=== PATIENT | male | born 1985 | race Caucasian/White ===

== ENCOUNTER 2016-09-13 02:05 | Emergency (ER) | payer OTHER ==
--- NOTE | 2016-09-13 03:08 | ED ORDER SUMMARY ---
..... Patient: DIGNA MEDELLIN OrderSheet [facility] VisitID: [id number] [place] [address] 31y, M Registration Date/Time: 09/13/2016 ORDER SHEET Weight: 22.6 kg (stated) Allergies: No Known Drug Allergy GENERAL ORDERS: Shoulder 2V or more Left Urgent (02:38 09/13/2016 Jarett Talbert) (Ack 2:42 [facility] ER Supervisor Dumping) (2:51 Joyce) MEDICATION ORDERS: NitroGLYCERIN SL 0.4 mg (once now. hold for SB < 110 or MAP < 65) (02:26 09/13/2016 Jarett Talbert) (Cancelled: Other2:27 Jarett Talbert) Toradol IM 60 mg (NOW) (02:38 09/13/2016 Jarett Talbert) (Ack 2:39 JQuminh R.N.) (2:44 JQuivediya R.N.) IV FLUIDS: ORDER SHEET NOTES: [Electronically signed by Lavon Shaw R.N. (03:18 09/13/2016)] [Electronically signed by Darrell Dunham Dr. (21:32 09/19/2016)] [Electronically locked/signed by Lavon Shaw R.N. (03:18 09/13/2016)]
--- NOTE | 2016-09-13 03:08 | ED NURSING NOTES ---
Clinical Report - Nurses [place] [address] [place] [address] 09/13/2016 2:06 Patient: DIGNA MEDELLIN TRIAGE Triage time 02:27. Acuity: LEVEL 4. Chief Complaint: BACK PAIN and (Left upper). 02:31. Alert. SEPSIS SCREEN: Sepsis Screen. Negative (no infection suspected/documented). MALINDA COMA SCORE: Malinda Coma Scale: 15- eyes open spontaneously (4); best verbal response- oriented x 4 (5); best motor response- obeys commands (6). --02:31 Lavon Shaw R.N. 02:26 09/13/16. BP: 163/104. HR: 116. RR: 16. O2 saturation: 98% on room air. Temp: 98.7 F (oral). Pain level now: 03/19. --02:31 Lavon Shaw R.N. Weight: 22.6 kg stated. Height/Length: 73 inches Per Patient. BMI: 6.6. --02:30 Lavon Shaw R.N. Medications Claritin Oral. --02:28 Lavon Shaw R.N. Medication/allergy information source: the patient. --02:31 Lavon Shaw R.N. Allergies No Known Drug Allergy. --02:28 Lavon Shaw R.N. History Arrived by private vehicle. Historian: patient. Unaccompanied. Primary physician (Aurelio). Onset. (1 weeks ago). ( Patient reports left upper back pain below his shoulder blade for about 1 week, denies any injury). No history of recent trauma. 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 PAST MEDICAL HX: Tetanus status: up-to-date. Immunizations: up-to-date. SOCIAL HX: Current every day heavy tobacco smoker- 1 pack per day. Occasional alcohol use. No drug use. No infectious disease exposure. ABUSE ASSESSMENT: No report of abuse. FALL RISK ASSESSMENT: Fall risk assessment completed. No fall risk identified. NUTRITIONAL RISK ASSESSMENT: The nutritional risk assessment revealed no deficiencies. FUNCTIONAL ASSESSMENT: Functional assessment: no impairments noted. LEARNING NEEDS ASSESSMENT: The learning needs assessment revealed no barriers. SKIN INTEGRITY ASSESSMENT: Skin integrity risk assessment completed. No skin integrity risk identified. --02:31 Lavon Sahw R.N. PROBLEMS: Diverticulitis. UTI - Urinary Tract Infection. --02:28 Lavon Shaw R.N. ADDITIONAL SURGERIES: Adenoidectomy. Tonsillectomy. --02:28 Lavon Shaw R.N. Colectomy. --02:29 Lavon Shaw R.N. Interventions ID band on patient. To treatment room. --02:31 Lavon Shaw R.N. PHYSICAL ASSESSMENT 02:31. Ambulatory to room. GENERAL / NEURO / PSYCH: Alert. Oriented X 4. RESPIRATORY: Respirations not labored. EXTREMITIES: Sensation intact in extremities. ROM of extremities within normal limits. --02:32 Lavon Shaw R.N. NURSING PROGRESS NOTES 02:32. Head of bed elevated. Two patient identifiers checked. Call light placed in reach. Bed placed in lowest position. Brakes of bed on. Patient ready for evaluation- chart flagged. --02:32 Lavon Shaw R.N. 02:44 09/13/2016 Toradol (Ketorolac Tromethamine) IM 60 mg given. Given in the left ventral gluteus. Allergies verified and confirmed 5 rights. --02:44 Lavon Shaw R.N. 02:44. Patient walked to radiology with tech. --02:44 Lavon Shaw R.N. 02:53. Patient returned from radiology by stretcher with tech. --03:07 Lavon Shaw R.N. 03:13. The patient is calm and resting quietly. GENERAL / NEURO / PSYCH: Alert. Oriented X 4. No sensory deficit. RESPIRATORY: No respiratory distress. SKIN: Skin is warm and dry. Skin color within normal limits. --03:18 Lavon Shaw R.N. DISPOSITION / DISCHARGE Departure time: 03:16. Condition at departure: stable. No learning barriers present. Discharge instructions provided and reviewed with the patient. Reviewed medication(s) side effects, precautions, dosing and course information. Prescription(s) given to the patient. Patient verbalized understanding. The patient was discharged home and unaccompanied at time of discharge. He left the Emergency Department ambulatory and via private vehicle. Patient driving. FALL RISK ASSESSMENT: Fall risk assessment completed. No fall risk identified. --03:17 Lavon Shaw R.N. 03:13 09/13/16. BP: 141/96. HR: 97. RR: 16. O2 saturation: 97%. Pain level now: 02/16. --03:17 Lavon Shaw R.N. Locked/Released at 09/13/2016 3:18 by Lavon Shaw R.N.
--- NOTE | 2016-09-13 03:08 | ED CLINICAL REPORT ---
Clinical Report - Physicians/Mid Levels [facility] [address] [place] [address] 09/13/2016 2:06 Patient: DIGNA MEDELLIN Arrived- By private vehicle. Historian- patient. HISTORY OF PRESENT ILLNESS Chief Complaint: Injury to left shoulder. The injury happened 1 week ago. Occurred at home. ( reports he does not recall). Patient is experiencing mild pain. Patient denies injury to the head or neck. No other injury. ( reports no chest pain, shortness of breath, weakness, dizziness, vision changes.). REVIEW OF SYSTEMS No swelling, tingling, numbness, weakness or suspected foreign body. No skin laceration. All systems otherwise negative, except as recorded above. PAST HISTORY See nurses notes. Tetanus immunization status is up-to-date. SOCIAL HISTORY Smoker- current status unknown. No alcohol use or drug use. No recent travel. Is a local resident. FAMILY HISTORY no family history of early cardiac disease. ADDITIONAL NOTES The nursing notes have been reviewed. PHYSICAL EXAM Vital Signs: 09/13/2016 02:26 BP: 163/104. HR: 116. RR: 16. O2 saturation: 98%. Temp: 98.7 F. Pain level now: 8/10. Blood pressure normal. Oxygen saturation normal. Appearance: Alert. Oriented X3. No acute distress. Head: Head atraumatic. Eyes: Pupils equal, round and reactive to light. Eyes normal inspection. ENT: Ears normal. Nose normal. Pharynx normal. Neck: Normal inspection. Neck supple. C-spine non-tender. CVS: Normal heart rate and rhythm. Heart sounds normal. Pulses normal. Respiratory: No respiratory distress. Breath sounds normal. Chest nontender. No chest wall injury, rales, rhonchi or wheezes. Abdomen: No visible injury. Soft and nontender. Bowel sounds normal. No organomegaly. No mass. Back: Normal inspection. No tenderness. ROM normal. Skin: Skin intact. Skin warm and dry. Normal skin color. Normal skin turgor. Extremities: Normal external inspection. No shoulder injury. Shoulder otherwise negative. (mild tenderness over the medial border of the left scapula. no overlying skin changes or crepitus.). No extremity tenderness in other areas. Extremities otherwise negative. ( no lower extremity edema or calf tenderness). Neuro, Vascular and Tendons: Sensation intact. Motor intact. Vascular status intact. Tendon function intact. Tendon visualized, uninjured. LABS, X-RAYS, AND EKG Lt Shoulder X-ray: No fracture. Normal alignment. No bony lesion or air in the soft tissue. Soft tissues normal. Joint spaces normal. Views: AP with external rotation, AP with internal rotation and "Y" view. Technique: good. The X-rays were independently viewed by me and interpreted contemporaneously by me. Prior films were not available for comparison. PROGRESS AND PROCEDURES Course of Care: The patient is a 31 yo male presenting for evaluation of shoulder pain. Patient with MSK type of pain. Discomfort is reproducible. Patient in no acute distress. Do not feel this is AAA or atypical OH or PE presentation. Discussed with patient workup. Patient agreeable to plan. Pain medication ordered. No signs of compartment syndrome. Patient is neurovasc intact. Do not feel this is a septic joint. XR does not show any acute abnormalities. Discussed with patient work up and diagnosis. Do not feel patient needs to be admitted or require further ED work up. Patient is to follow up with his primary care doctor for further evaluation. All questions answered. Patient expressed understanding of these instructions and was agreeable to them. Patient evaluated prior to discharge. Continues to be doing well. Exam reassuring. CLINICAL IMPRESSION 09/13/2016 02:26 BP: 163/104. HR: 116. RR: 16. O2 saturation: 98%. Temp: 98.7 F. Pain level now: 8/10. Blood pressure normal. Oxygen saturation normal. Sprain of the right shoulder (acute). INSTRUCTIONS Warnings: GENERAL WARNINGS: Return or contact your physician immediately if your condition worsens or changes unexpectedly, if not improving as expected, or if other problems arise. Specifically return if pain, vomiting, bleeding, breathing difficulty or fever. Your Current Medications: CONTINUE TAKING THE FOLLOWING MEDICATIONS: Claritin Oral. Prescription Medications: [facility] 5 mg / 325 mg tablets: take 1 orally every 6 hours as needed for pain. Dispense ten (10). No refill. Substitution is permissible. Motrin 600 mg tablets: take 1 tablet orally every 6 hours as needed for pain, stiffness or swelling. Dispense thirty (30). No refill. Substitution is permissible. (take with food) Follow-up: Return to the emergency department as needed. Follow up with your doctor in three days. Reason for referral: recheck today's concerns. Summary of care provided to patient via paper. Screening today revealed the patient's blood pressure to be in the normal range. The patient should follow up with a primary care provider for blood pressure management. Understanding of the discharge instructions verbalized by patient. (Electronically signed by Darrell Dunham Dr. 09/19/2016 21:32)
--- NOTE | 2016-09-13 03:08 | ED ORDER SUMMARY ---
..... 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 hold for SB < 110 or MAP < 65) (02:26 09/13/2016 Jarett Talbert) (Cancelled: Other2:27 Jarett Talbert) Toradol IM 60 mg (NOW) (02:38 09/13/2016 Jarett Talbert) (Ack 2:39 JQuminh R.N.) (2:44 JQuivediya R.N.) IV FLUIDS: ORDER SHEET NOTES: [Electronically signed by Lavon Shaw R.N. (03:18 09/13/2016)] [Electronically signed by Darrell Dunham Dr. (21:32 09/19/2016)] [Electronically locked/signed by Lavon Shaw R.N. (03:18 09/13/2016)]
--- NOTE | 2016-09-13 03:08 | ED NURSING NOTES ---
Clinical Report - Nurses [place] [address] [place] [address] 09/13/2016 2:06 Patient: DIGNA MEDELLIN TRIAGE Triage time 02:27. Acuity: LEVEL 4. Chief Complaint: BACK PAIN and (Left upper). 02:31. Alert. SEPSIS SCREEN: Sepsis Screen. Negative (no infection suspected/documented). MALINDA COMA SCORE: Malinda Coma Scale: 15- eyes open spontaneously (4); best verbal response- oriented x 4 (5); best motor response- obeys commands (6). --02:31 Lavon Shaw R.N. 02:26 09/13/16. BP: 163/104. HR: 116. RR: 16. O2 saturation: 98% on room air. Temp: 98.7 F (oral). Pain level now: 03/19. --02:31 Lavon Shaw R.N. Weight: 22.6 kg stated. Height/Length: 73 inches Per Patient. BMI: 6.6. --02:30 Lavon Shaw R.N. Medications Claritin Oral. --02:28 Lavon Shaw R.N. Medication/allergy information source: the patient. --02:31 Lavon Shaw R.N. Allergies No Known Drug Allergy. --02:28 Lavon Shaw R.N. History Arrived by private vehicle. Historian: patient. Unaccompanied. Primary physician (Aurelio). Onset. (1 weeks ago). ( Patient reports left upper back pain below his shoulder blade for about 1 week, denies any injury). No history of recent trauma. 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 PAST MEDICAL HX: Tetanus status: up-to-date. Immunizations: up-to-date. SOCIAL HX: Current every day heavy tobacco smoker- 1 pack per day. Occasional alcohol use. No drug use. No infectious disease exposure. ABUSE ASSESSMENT: No report of abuse. FALL RISK ASSESSMENT: Fall risk assessment completed. No fall risk identified. NUTRITIONAL RISK ASSESSMENT: The nutritional risk assessment revealed no deficiencies. FUNCTIONAL ASSESSMENT: Functional assessment: no impairments noted. LEARNING NEEDS ASSESSMENT: The learning needs assessment revealed no barriers. SKIN INTEGRITY ASSESSMENT: Skin integrity risk assessment completed. No skin integrity risk identified. --02:31 Lavon Shaw R.N. PROBLEMS: Diverticulitis. UTI - Urinary Tract Infection. --02:28 Lavon Shaw R.N. ADDITIONAL SURGERIES: Adenoidectomy. Tonsillectomy. --02:28 Lavon Shaw R.N. Colectomy. --02:29 Lavon Shaw R.N. Interventions ID band on patient. To treatment room. --02:31 Lavon Shaw R.N. PHYSICAL ASSESSMENT 02:31. Ambulatory to room. GENERAL / NEURO / PSYCH: Alert. Oriented X 4. RESPIRATORY: Respirations not labored. EXTREMITIES: Sensation intact in extremities. ROM of extremities within normal limits. --02:32 Lavon Shaw R.N. NURSING PROGRESS NOTES 02:32. Head of bed elevated. Two patient identifiers checked. Call light placed in reach. Bed placed in lowest position. Brakes of bed on. Patient ready for evaluation- chart flagged. --02:32 Lavon Shaw R.N. 02:44 09/13/2016 Toradol (Ketorolac Tromethamine) IM 60 mg given. Given in the left ventral gluteus. Allergies verified and confirmed 5 rights. --02:44 Lavon Shaw R.N. 02:44. Patient walked to radiology with tech. --02:44 Lavon Shaw R.N. 02:53. Patient returned from radiology by stretcher with tech. --03:07 Lavon Shaw R.N. 03:13. The patient is calm and resting quietly. GENERAL / NEURO / PSYCH: Alert. Oriented X 4. No sensory deficit. RESPIRATORY: No respiratory distress. SKIN: Skin is warm and dry. Skin color within normal limits. --03:18 Lavon Shaw R.N. DISPOSITION / DISCHARGE Departure time: 03:16. Condition at departure: stable. No learning barriers present. Discharge instructions provided and reviewed with the patient. Reviewed medication(s) side effects, precautions, dosing and course information. Prescription(s) given to the patient. Patient verbalized understanding. The patient was discharged home and unaccompanied at time of discharge. He left the Emergency Department ambulatory and via private vehicle. Patient driving. FALL RISK ASSESSMENT: Fall risk assessment completed. No fall risk identified. --03:17 Lavon Shaw R.N. 03:13 09/13/16. BP: 141/96. HR: 97. RR: 16. O2 saturation: 97%. Pain level now: 02/16. --03:17 Lavon Shaw R.N. Locked/Released at 09/13/2016 3:18 by Lavon Shaw R.N.
--- NOTE | 2016-09-13 08:01 | DIAGNOSTIC IMAGING REPORT ---
PROCEDURE: XR SHOULDER 2 OR MORE VW-LEFT INDICATION: PAIN, initial encounter TECHNIQUE: Three views. COMPARISON: None. FINDINGS: Osseous structures, joint spaces and soft tissues are normal. IMPRESSION: 1. Normal left shoulder.
--- NOTE | 2016-09-19 21:32 | ED MAR SUMMARY ---
..... Medication Administration Record [facility] [address] [place] [address] Patient: DIGNA MEDELLIN Visit ID: [id number] 31y, M Weight: 22.6 kg Height/Length: 73 in BMI: 6.6 ALLERGIES: No Known Drug Allergy Given 02:44 09/13/2016 Lavon Shaw RJackNJack Medication Administered: TORADOL [IM] (KETOROLAC TROMETHAMINE), Dose: 60 mg IM. Medication Ordered: Toradol IM 60 mg (NOW).
--- NOTE | 2016-09-19 21:32 | ED MAR SUMMARY ---
..... Medication Administration Record [facility] [address] [place] [address] Patient: DIGNA MEDELLIN Visit ID: [id number] 31y, M Weight: 22.6 kg Height/Length: 73 in BMI: 6.6 ALLERGIES: No Known Drug Allergy Given 02:44 09/13/2016 Lavon Shaw RJackNJack Medication Administered: TORADOL [IM] (KETOROLAC TROMETHAMINE), Dose: 60 mg IM. Medication Ordered: Toradol IM 60 mg (NOW).
--- NOTE | 2016-09-19 21:32 | ED DISCHARGE INSTRUCTIONS ---
Patient: DIGNA MEDELLIN General Instructions [facility] VisitID: [id number] [place] [address] 31y, M Registration Date/Time: 09/13/2016 09/13/2016 02:26 BP: 163/104. HR: 116. RR: 16. O2 saturation: 98%. Temp: 98.7 F. Pain level now: 8/10. Blood pressure normal. Oxygen saturation normal. Sprain of the right shoulder (acute). INSTRUCTIONS Warnings: GENERAL WARNINGS: Return or contact your physician immediately if your condition worsens or changes unexpectedly, if not improving as expected, or if other problems arise. Specifically return if pain, vomiting, bleeding, breathing difficulty or fever. Your Current Medications: CONTINUE TAKING THE FOLLOWING MEDICATIONS: Claritin Oral. Prescription Medications: [place] 5 mg / 325 mg tablets: take 1 orally every 6 hours as needed for pain. Dispense ten (10). No refill. Substitution is permissible. Motrin 600 mg tablets: take 1 tablet orally every 6 hours as needed for pain, stiffness or swelling. Dispense thirty (30). No refill. Substitution is permissible. (take with food) Follow-up: Return to the emergency department as needed. Follow up with your doctor in three days. Reason for referral: recheck today's concerns. Summary of care provided to patient via paper. Screening today revealed the patient's blood pressure to be in the normal range. The patient should follow up with a primary care provider for blood pressure management. Understanding of the discharge instructions verbalized by patient. ADDITIONAL INFORMATION Shoulder Sprain A sprain is a stretching or tearing of the ligaments that hold a joint together. A sprain may take up to six weeks to fully heal, depending on how severe it is. Moderate to severe shoulder sprains are treated with a sling or shoulder immobilizer. Minor sprains can be treated without any special support. Home care The following guidelines will help you care for your injury at home: If a sling was provided, leave it in place for the time advised by your doctor. If you are unsure how long to wear it, ask for advice. If the sling becomes loose, adjust it so that your forearm is level with the ground and the shoulder feels well supported. Apply an ice pack (ice cubes in a plastic bag, wrapped in a thin towel) over the injured area for 20 minutes every 12 hours the first day. Continue with ice packs 34 times a day for the next two days, then as needed for the relief of pain and swelling. You may use acetaminophen or ibuprofen to control pain, unless another pain medicine was prescribed.If you have chronic liver or kidney disease or ever had a stomach ulcer or GI bleeding, talk with your doctor before using these medicines. Shoulder joints become stiff if left in a sling for too long. Range of motion exercises should usually be started within the first ten days after injury. Consult your doctor on what type of exercises to do and how soon to start. Follow-up care Follow up with your doctor as directed. Any X-rays you had today dont show any broken bones, breaks, or fractures. Sometimes fractures dont show up on the first X-ray. Bruises and sprains can sometimes hurt as much as a fracture. These injuries can take time to heal completely. If your symptoms dont improve or they get worse, talk with your doctor. You may need a repeat X-ray. When to seek medical care Get prompt medical attention if any of the following occur: Increasing shoulder pain or arm swelling Fingers become cold, blue, numb, or tingly Large amount of bruising of the shoulder or upper arm Hydrocodone Bitartrate, Acetaminophen Oral tablet What is this medicine? ACETAMINOPHEN; HYDROCODONE (a set a SUKHJINDER surjit fen; shazia droe KOE done) is a pain reliever. It is used to treat mild to moderate pain. How should I use this medicine? Take this medicine by mouth. Swallow it with a full glass of water. Follow the directions on the prescription label. If the medicine upsets your stomach, take the medicine with food or milk. Do not take more than you are told to take. Talk to your aircraft instrument engineer regarding the use of this medicine in children. This medicine is not approved for use in children. What side effects may I notice from receiving this medicine? Side effects that you should report to your doctor or health direct care counselor as soon as possible: allergic reactions like skin rash, itching or hives, swelling of the face, lips, or tongue breathing problems confusion feeling faint or lightheaded, falls stomach pain yellowing of the eyes or skin Side effects that usually do not require medical attention (report to your doctor or health direct care counselor if they continue or are bothersome): nausea, vomiting stomach upset What may interact with this medicine? alcohol antihistamines isoniazid medicines for depression, anxiety, or psychotic disturbances medicines for sleep muscle relaxants naltrexone narcotic medicines (opiates) for pain phenobarbital ritonavir tramadol What if I miss a dose? If you miss a dose, take it as soon as you can. If it is almost time for your next dose, take only that dose. Do not take double or extra doses. Where should I keep my medicine? Keep out of the reach of children. This medicine can be abused. Keep your medicine in a safe place to protect it from theft. Do not share this medicine with anyone. Selling or giving away this medicine is dangerous and against the law. Store at room temperature between 15 and 30 degrees C (59 and 86 degrees F). Protect from light. Keep container tightly closed. Throw away any unused medicine after the expiration date. Discard unused medicine and used packaging carefully. Pets and children can be harmed if they find used or lost packages. What should I tell my health care provider before I take this medicine? They need to know if you have any of these conditions: brain tumor Crohn's disease, inflammatory bowel disease, or ulcerative colitis drink more than 3 alcohol-containing drinks per day drug abuse or addiction head injury heart or circulation problems kidney disease or problems going to the bathroom liver disease lung disease, asthma, or breathing problems an unusual or allergic reaction to acetaminophen, hydrocodone, other opioid analgesics, other medicines, foods, dyes, or preservatives or trying to get breast-feeding What should I watch for while using this medicine? Tell your doctor or health direct care counselor if your pain does not go away, if it gets worse, or if you have new or a different type of pain. You may develop tolerance to the medicine. Tolerance means that you will need a higher dose of the medicine for pain relief. Tolerance is normal and is expected if you take the medicine for a long time. Do not suddenly stop taking your medicine because you may develop a severe reaction. Your body becomes used to the medicine. This does NOT mean you are addicted. Addiction is a behavior related to getting and using a drug for a non-medical reason. If you have pain, you have a medical reason to take pain medicine. Your doctor will tell you how much medicine to take. If your doctor wants you to stop the medicine, the dose will be slowly lowered over time to avoid any side effects. You may get drowsy or dizzy when you first start taking the medicine or change doses. Do not drive, use machinery, or do anything that may be dangerous until you know how the medicine affects you. Stand or sit up slowly. There are different types of narcotic medicines (opiates) for pain. If you take more than one type at the same time, you may have more side effects. Give your health care provider a list of all medicines you use. Your doctor will tell you how much medicine to take. Do not take more medicine than directed. Call emergency for help if you have problems breathing. The medicine will cause constipation. Try to have a bowel movement at least every 2 to 3 days. If you do not have a bowel movement for 3 days, call your doctor or health direct care counselor. Too much acetaminophen can be very dangerous. Do not take Tylenol (acetaminophen) or medicines that contain acetaminophen with this medicine. Many non-prescription medicines contain acetaminophen. Always read the labels carefully. Ibuprofen Oral tablet What is this medicine? IBUPROFEN (eye BYOO proe fen) is a non-steroidal anti-inflammatory drug (NSAID). It is used for dental pain, fever, headaches or migraines, osteoarthritis, rheumatoid arthritis, or painful monthly periods. It can also relieve minor aches and pains caused by a cold, flu, or sore throat. How should I use this medicine? Take this medicine by mouth with a glass of water. Follow the directions on the prescription label. Take this medicine with food if your stomach gets upset. Try to not lie down for at least 10 minutes after you take the medicine. Take your medicine at regular intervals. Do not take your medicine more often than directed. A special MedGuide will be given to you by the pharmacist with each prescription and refill. Be sure to read this information carefully each time. Talk to your aircraft instrument engineer regarding the use of this medicine in children. Special care may be needed. What side effects may I notice from receiving this medicine? Side effects that you should report to your doctor or health direct care counselor as soon as possible: allergic reactions like skin rash, itching or hives, swelling of the face, lips, or tongue black or bloody stools, blood in the urine or in vomit breathing problems changes in vision chest pain general ill feeling or flu-like symptoms nausea or vomiting redness, blistering, peeling or loosening of the skin, including inside the mouth slurred speech or weakness on one side of the body stomach pain unexplained weight gain or swelling unusually weak or tired yellowing of eyes or skin Side effects that usually do not require medical attention (report to your doctor or health direct care counselor if they continue or are bothersome): constipation or diarrhea dizziness gas or heartburn stomach upset What may interact with this medicine? Do not take this medicine with any of the following medications: cidofovir ketorolac methotrexate pemetrexed This medicine may also interact with the following medications: alcohol aspirin diuretics lithium other drugs for inflammation like prednisone warfarin What if I miss a dose? If you miss a dose, take it as soon as you can. If it is almost time for your next dose, take only that dose. Do not take double or extra doses. Where should I keep my medicine? Keep out of the reach of children. Store at room temperature between 15 and 30 degrees C (59 and 86 degrees F). Keep container tightly closed. Throw away any unused medicine after the expiration date. What should I tell my health care provider before I take this medicine? They need to know if you have any of these conditions: asthma cigarette smoker drink more than 3 alcohol containing drinks a day heart disease or circulation problems such as heart failure or leg edema (fluid retention) high blood pressure kidney disease liver disease stomach bleeding or ulcers an unusual or allergic reaction to ibuprofen, aspirin, other NSAIDS, other medicines, foods, dyes, or preservatives or trying to get breast-feeding What should I watch for while using this medicine? Tell your doctor or healthcare professional if your symptoms do not start to get better or if they get worse. This medicine does not prevent heart attack or stroke. In fact, this medicine may increase the chance of a heart attack or stroke. The chance may increase with longer use of this medicine and in people who have heart disease. If you take aspirin to prevent heart attack or stroke, talk with your doctor or health direct care counselor. Do not take other medicines that contain aspirin, ibuprofen, or naproxen with this medicine. Side effects such as stomach upset, nausea, or ulcers may be more likely to occur. Many medicines available without a prescription should not be taken with this medicine. This medicine can cause ulcers and bleeding in the stomach and intestines at any time during treatment. Ulcers and bleeding can happen without warning symptoms and can cause . To reduce your risk, do not smoke cigarettes or drink alcohol while you are taking this medicine. You may get drowsy or dizzy. Do not drive, use machinery, or do anything that needs mental alertness until you know how this medicine affects you. Do not stand or sit up quickly, especially if you are an older patient. This reduces the risk of dizzy or fainting spells. This medicine can cause you to bleed more easily. Try to avoid damage to your teeth and gums when you brush or floss your teeth. You have been given the following additional information: Shoulder Sprain Hydrocodone Bitartrate, Acetaminophen Oral tablet Ibuprofen Oral tablet (Electronically signed by Darrell Dunham Dr. 09/19/2016 21:32)
--- NOTE | 2016-09-19 21:33 | ED MED RECONCILIATION SUMMARY ---
Patient: DIGNA MEDELLIN Medication Reconciliation Report [facility] VisitID: [id number] [address] [place] [address] 31y, M Registration Date/Time: 09/13/2016 Weight: 22.6 kg Height/Length: 73 in. BMI: 6.6 ALLERGIES: No Known Drug Allergy The patient's Home Medications are listed below: CONTINUE TAKING THE FOLLOWING MEDICATIONS: Claritin Oral The source(s) of the original Home Medication information: patient The following Medications were given to the patient in the Emergency Department: Toradol [IM] IM 60 mg, administered: 09/13/2016 2:44:00 AM The following Medications were prescribed to the patient: [place] 5 mg / 325 mg tablets: take 1 orally every 6 hours as needed for pain. Dispense ten (10). No refill. Substitution is permissible. -- Darrell Dunham Dr. Motrin 600 mg tablets: take 1 tablet orally every 6 hours as needed for pain, stiffness or swelling. Dispense thirty (30). No refill. Substitution is permissible.(take with food) -- Darrell Dunham Dr.
--- NOTE | 2016-09-19 21:33 | ED MED RECONCILIATION SUMMARY ---
Patient: DIGNA MEDELLIN Medication Reconciliation Report [facility] VisitID: [id number] [address] [place] [address] 31y, M Registration Date/Time: 09/13/2016 Weight: 22.6 kg Height/Length: 73 in. BMI: 6.6 ALLERGIES: No Known Drug Allergy The patient's Home Medications are listed below: CONTINUE TAKING THE FOLLOWING MEDICATIONS: Claritin Oral The source(s) of the original Home Medication information: patient The following Medications were given to the patient in the Emergency Department: Toradol [IM] IM 60 mg, administered: 09/13/2016 2:44:00 AM The following Medications were prescribed to the patient: [place] 5 mg / 325 mg tablets: take 1 orally every 6 hours as needed for pain. Dispense ten (10). No refill. Substitution is permissible. -- Darrell Dunham Dr. Motrin 600 mg tablets: take 1 tablet orally every 6 hours as needed for pain, stiffness or swelling. Dispense thirty (30). No refill. Substitution is permissible.(take with food) -- Darrell Dunham Dr.
== END 2016-09-13 03:16 | disposition home or self-care (01) ==
LOC: ED SRH 02:05
DX: S43.401A Unspecified sprain of right shoulder joint, initial encounter (principal); Y93.9 Activity, unspecified; Y92.009 Unspecified place in unspecified non-institutional (private) residence as the place of occurrence of the external cause; Y99.9 Unspecified external cause status